=== PATIENT | male | born 1980 | race Caucasian/White ===

== ENCOUNTER → 2018-03-27 | Outpatient (CLI) | payer OTHER ==
[~2018-03-27] MED LIST: ALBUTEROL INHAL17 GM IH; CARISOPRODOL 3350 MG PO; RELAFEN500 MG PO; ULTRAM 50MG TAB50 MG PO; ZYRTEC
== END ==
LOC: CAT 03-20 15:24
DX: D73.89 Other diseases of spleen (principal)

== ENCOUNTER → 2018-04-28 | Outpatient (CLI) | payer OTHER ==
[2018-04-28 13:57] LABS: CREATININE 1.3 mg/dL (0.7-1.3)
== END ==
LOC: MRI 04-19 14:36
PROVIDERS: Surgery
DX: M51.36 Other intervertebral disc degeneration, lumbar region (principal); R10.32 Left lower quadrant pain